=== PATIENT | female | born 1955 | race Caucasian/White ===

== ENCOUNTER 2017-09-28 09:52 | Emergency (ER) | payer OTHER ==
[2017-09-28 10:53] VITALS: BP 120/58; PULSE 70; RESP 16; TEMP 98.3; O2SAT 96
[2017-09-28] MEDS ORDERED: ONDANSETRON HCL 4 MG/2 ML VIAL IV PUSH ONE (12:00)
[2017-09-28] MEDS ORDERED: SODIUM CHLOR 0.9% 1000 ML INJ 1,000 ML IV ONE (12:00)
[2017-09-28] MEDS ORDERED: MECLIZINE HCL 25 MG TAB PO ONE (12:00)
[2017-09-28] MEDS ORDERED: DIAZEPAM 5 MG TAB PO ONE (12:00)
--- NOTE | 2017-09-28 12:00 | PD ---
HPI Chief Complaint: Dizziness Time Seen by Provider: 11:37 Travel History International Travel<30 days: No Contact w/Intl Traveler<30days: No Traveled to known affect area: No History of Present Illness HPI Patient is a 62-year-old female presents emergency department for an 8 day history of dizziness. Patient states he was sitting at home when suddenly she had onset of dizziness while sitting on her couch, she states ever since then every time she looks upwards or just goes to stand from a seated position she gets incredibly dizziness and nauseous. She states this never happened to her before. 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 [facility] was found to be hypotensive in the low 90s systolic, EMS was called and she was transported here. She received 800 cc of fluid prior to arrival here and is beginning to feel better. She states that she has not been able to keep anything down not even clear liquids. She denies any chest pain shortness of breath abdominal pain or diarrhea. No fevers. [facility] Past Medical History Narrative Medical [place] Palsy Past Surgical History Narrative Surgical Declines Social History Tobacco Use: No Allergies-Medications (Allergen,Severity, Reaction): Coded Allergies: morphine (Verified Allergy, Severe, 09/28/17) Uncoded Allergies: anastesia (Allergy, Severe, 09/28/17) unknown med Reported Meds & Prescriptions Reported Meds & Active Scripts Active Zofran (Ondansetron HCl) 4 Mg Tab 4 Mg PO Q6HR PRN Review of Systems Except as stated in HPI: all other systems reviewed are Neg Physical Exam Narrative GENERAL: Well-developed well-nourished no obvious distress SKIN: Focused skin assessment warm/dry. HEAD: Atraumatic. Normocephalic. EYES: Pupils equal and round. No scleral icterus. No injection or drainage. ENT: No nasal bleeding or discharge. Mucous membranes pink and moist. NECK: Trachea midline. No JVD. CARDIOVASCULAR: Regular rate and rhythm. No murmur appreciated. RESPIRATORY: No accessory muscle use. Clear to auscultation. Breath sounds equal bilaterally. GASTROINTESTINAL: Abdomen soft, non-tender, nondistended. Hepatic and splenic margins not palpable. MUSCULOSKELETAL: No obvious deformities. No clubbing. No cyanosis. No edema. 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 Otherwise cranial nerves II through and VIII through XII are intact. She has 5 out of 5 strength in all 4 extremities, cerebellar testing with finger- nose-finger and heel brody testing is negative. The patient has no balance difficulty with Romberg and knowledge testing. She ambulates with an even narrow-base gait. PSYCHIATRIC: Appropriate mood and affect; insight and judgment normal. Data Data Last Documented VS Vital Signs Date Time Temp Pulse Resp B/P (MAP) Pulse Ox O2 Delivery O2 Flow Rate FiO2 09/28/17 15:49 09/28/17 15:49 82 17 100 Room Air 09/28/17 10:53 98.3 Orders Orders Complete Blood Count With Diff (09/28/17 11:23) Comprehensive Metabolic Panel (09/28/17 11:23) Lipase (09/28/17 11:23) Electrocardiogram (09/28/17 ) Ckmb (Isoenzyme) Profile (09/28/17 11:23) Prothrombin Time / Inr (Pt) (09/28/17 11:23) Act Partial Throm Time (Ptt) (09/28/17 11:23) Troponin I (09/28/17 11:23) Ct Brain W/O Iv Contrast(Rout) (09/28/17 ) Sodium Chlor 0.9% 1000 Ml Inj (Ns 1000 M (09/28/17 12:00) Meclizine (Antivert) (09/28/17 12:00) Diazepam (Valium) (09/28/17 12:00) Ondansetron Inj (Zofran Inj) (09/28/17 12:00) Ed Discharge Order (09/28/17 15:56) Labs Laboratory Tests Test 09/28/17 14:55 White Blood Count 6.9 TH/MM3 Red Blood Count 4.00 MIL/MM3 Hemoglobin 12.1 GM/DL Hematocrit 35.7 % Mean Corpuscular Volume 89.3 FL Mean Corpuscular Hemoglobin 30.4 PG Mean Corpuscular Hemoglobin Concent 34.0 % Red Cell Distribution Width 12.9 % Platelet Count 135 TH/MM3 Mean Platelet Volume 10.3 FL Neutrophils (%) (Auto) 60.1 % Lymphocytes (%) (Auto) 31.1 % Monocytes (%) (Auto) 7.0 % Eosinophils (%) (Auto) 1.1 % Basophils (%) (Auto) 0.7 % Neutrophils # (Auto) 4.1 TH/MM3 Lymphocytes # (Auto) 2.1 TH/MM3 Monocytes # (Auto) 0.5 TH/MM3 Eosinophils # (Auto) 0.1 TH/MM3 Basophils # (Auto) 0.0 TH/MM3 CBC Comment DIFF FINAL Differential Comment Prothrombin Time 11.8 SEC Prothromb Time International Ratio 1.2 RATIO Activated Partial Thromboplast Time 24.3 SEC Blood Urea Nitrogen 18 MG/DL Creatinine 0.80 MG/DL Random Glucose 99 MG/DL Total Protein 6.8 GM/DL Albumin 3.8 GM/DL Calcium Level 8.7 MG/DL Alkaline Phosphatase 63 U/L Aspartate Amino Transf (AST/SGOT) 11 U/L Alanine Aminotransferase (ALT/SGPT) 15 U/L Total Bilirubin 0.8 MG/DL Sodium Level 142 MEQ/L Potassium Level 4.1 MEQ/L Chloride Level 109 MEQ/L Carbon Dioxide Level 25.5 MEQ/L Anion Gap 8 MEQ/L Estimat Glomerular Filtration Rate 72 ML/MIN Total Creatine Kinase 45 U/L Troponin I LESS THAN 0.02 NG/ML Lipase 98 U/L MDM Medical Decision Making Medical Screen Exam Complete: Yes Emergency Medical Condition: Yes Differential Diagnosis Cerebellar stroke is a possibility, dehydration, electrolyte abnormality, transient hypotension, peripheral vertigo Narrative Course Patient room to the emergency department, she states that her neuro exam findings are chronic by either cranial nerve VII from Kimbrough's palsy. Otherwise she has no acute cranial nerve abnormality. CT head negative, electrolytes within normal limits, EKG negative, troponin negative. The patient states that she would like to go home with follow-up with her regular physicians. At this time I do not see any contraindication to that. I think the possibility of cerebellar stroke exists but is very very small. This was discussed with the patient and she would like to follow-up with an outpatient. Discussed symptomatic management of her nausea and discuss return to ED criteria. She is stable for discharge. Diagnosis Primary Impression: Nausea & vomiting Med/Other Pt SpecificInfo: Prescription(s) given Scripts Ondansetron (Zofran) 4 Mg Tab 4 MG PO Q6HR Y for NAUSEA OR VOMITING, #20 TAB 0 Refills Prov: Angelo Baltazar MD 3/26/18 Disposition: 01 DISCHARGE HOME Condition: Stable Angelo Baltazar MD Sep 28, 2017 12:00
[2017-09-28 12:10] VITALS: BP 137/67; PULSE 75; RESP 17; O2SAT 100
--- NOTE | 2017-09-28 12:32 | RADRPT ---
EXAM DATE/TIME: 09/28/2017 12:21 [place] COMPARISON: No previous studies available for comparison. INDICATIONS : Dizziness, nausea, vomiting. RADIATION DOSE: 34.17 CTDIvol (mGy) MEDICAL HISTORY : Kimbrough's palsy SURGICAL HISTORY : None. ENCOUNTER: Initial ACUITY: 1 week PAIN SCALE: 0/10 LOCATION: cranial TECHNIQUE: Multiple contiguous axial images were obtained of the head. Using automated exposure control and adj ustment of the mA and/or kV according to patient size, radiation dose was kept as low as reasonably a chievable to obtain optimal diagnostic quality images. DICOM format image data is available electro nically for review and comparison. FINDINGS: CEREBRUM: The ventricles are normal for age. No evidence of midline shift, mass lesion, hemorrhage or acute in farction. No extra-axial fluid collections are seen. POSTERIOR FOSSA: The cerebellum and brainstem are intact. The 4th ventricle is midline. The cerebellopontine angle i s unremarkable. EXTRACRANIAL: The visualized portion of the orbits is intact. SKULL: The calvaria is intact. No evidence of skull fracture. CONCLUSION: Negative noncontrast CT Trav Triplett MD on September 28, 2017 at 12:28 Board Certified Radiologist. This report was verified electronically.
[2017-09-28 15:12] LABS: AUTOMATED NEUTROPHIL # 4.1 TH/MM3 (1.8-7.7); BASOPHIL % 0.7 % (0.0-2.0); EOSINOPHIL # 0.1 TH/MM3 (0-0.4); EOSINOPHIL % 1.1 % (0.0-4.0); HEMATOCRIT 35.7 % (35.0-46.0); HEMOGLOBIN 12.1 GM/DL (11.6-15.3); LYMPH % 31.1 % (9.0-44.0); LYMPHOCYTE # 2.1 TH/MM3 (1.0-4.8); MEAN CELL VOLUME 89.3 FL (80.0-100.0); MEAN CORPUSCULAR HEMOGLOBIN 30.4 PG (27.0-34.0); MEAN PLATELET VOLUME 10.3 FL (7.0-11.0); MONOCYTE # 0.5 TH/MM3 (0-0.9); NEUT % 60.1 % (16.0-70.0); PLATELET COUNT 135 TH/MM3 (150-450); RED CELL DISTRIBUTION WIDTH 12.9 % (11.6-17.2); WHITE BLOOD COUNT 6.9 TH/MM3 (4.0-11.0)
[2017-09-28 15:24] LABS: ALBUMIN 3.8 GM/DL (3.4-5.0); ALT (GPT) 15 U/L (10-53); AST (GOT) 11 U/L (15-37); BICARBONATE 25.5 MEQ/L (21.0-32.0); BLOOD UREA NITROGEN 18 MG/DL (7-18); CALCIUM 8.7 MG/DL (8.5-10.1); CHLORIDE 109 MEQ/L (98-107); GLOMERULAR FILTRATION RATE 72 ML/MIN (>89); GLUCOSE,RANDOM 99 MG/DL (74-106); SODIUM (NA) 142 MEQ/L (136-145)
[2017-09-28 15:28] LABS: ALKALINE PHOSPHATASE 63 U/L (45-117); TOTAL BILIRUBIN ADULT 0.8 MG/DL (0.2-1.0); TOTAL PROTEIN 6.8 GM/DL (6.4-8.2); TROPONIN I LESS THAN 0.02 NG/ML (0.02-0.05)
[2017-09-28 15:31] LABS: INTERNATIONAL NORMALIZED RATIO 1.2 RATIO; PROTHROMBIN TIME - PATIENT 11.8 SEC (9.8-11.6)
[2017-09-28 15:49] VITALS: BP 152/72; PULSE 82; RESP 17; O2SAT 100
[2017-09-28] MEDS ORDERED: ZOFR4TAB PO (15:51)
--- NOTE | 2017-09-28 23:59 | EKG ---
Date Performed: 09/28/2017 Time Performed: 12:16:09 PTAGE: 62 years EKG: Sinus rhythm NORMAL ECG NO PREVIOUS TRACING DOCTOR: Pawan Way Interpretating Date/Time 09/28/2017 23:56:46
== END 2017-09-28 16:17 | disposition home or self-care (01) ==
LOC: NEDAMB 09:52 → NEPD 16:17
DX: R11.2 Nausea with vomiting, unspecified (principal); G51.0 Bell's palsy; R42 Dizziness and giddiness; Z88.5 Allergy status to narcotic agent
CPT/HCPCS: 70450; 80053; 82550; 83690; 84484; 85025; 85610; 85730; 93005; 96374; 99285; J2405; J7030